=== PATIENT | male | born 1935 | race Caucasian/White ===

== ENCOUNTER 2016-08-24 12:00 | Emergency (ER) | payer MEDICARE, OTHER ==
--- NOTE | 2016-08-24 12:19 | EDM.PDOC ---
ED HISTORY OF PRESENT ILLNESS - General Chief Complaint: Chest Pain Stated Complaint: CHEST PAIN/SOB Time Seen by Provider: 08/24/16 12:18 Source of Information: Reports: Patient History Limitations: Reports: No limitations - History of Present Illness INITIAL COMMENTS - FREE TEXT/NARRATIVE: Patient is a 81-year-old male with no documented medical history who presents to the ED complaining of chest pain and shortness of breath for the past week or so. States the chest discomfort is located to the left lateral aspect of his chest along his nipple line described as a pressure sensation localized rated 5-6 out of 0-10. This decreases with rest. Pain increases with taking deep inspiration and exertion. With chest discomfort he denies any diaphoresis , nausea/vomiting, dizziness, lightheadedness, syncopal episode, cough, fever/ chills, or recent upper history and infection. In addition he has increased shortness of breath with lying flat. This also worsens with exertion. Drastically improved with sitting up or standing. Denies any prior history of chest discomfort as such. He has no history of DVT/PE, hemoptysis, unilateral leg swellin, recent surgery, recent hospitalization, or recent bed confinement. He offers no additional complaints. Timing/Duration: Reports: Constant, Waxing/waning Severity: mild Location, General: Reports: chest Quality: Reports: Pressure Improves with: Reports: Rest Worsens with: Reports: Other (exertion) Context, General: Reports: Activity Associated Symptoms (General): Reports: chest pain, malaise, shortness of breath. 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) (ASA) - Related Data Allergies/ADRs: Allergies Allergy/AdvReac Type Severity Reaction Status Date / Time No Known Allergies Allergy Verified 08/24/16 12:08 Home Meds: Home Meds Ascorbic Acid [Vitamin C] 1,000 mg PO DAILY 08/24/16 [History] Aspirin 325 mg PO DAILY 08/24/16 [History] Past Medical History - Past Surgical History HEENT Surgical History: Reports: Oral surgery Social & Family History - Family History Family Medical History: Noncontributory - Tobacco Use Smoking Status *Q: Former Smoker - Recreational Drug Use Recreational Drug Use: No ED ROS GENERAL - Review of Systems Review Of Systems: See Below Constitutional: Reports: no symptoms Respiratory: Reports: shortness of breath. Denies: cough, sputum Cardiovascular: Reports: Chest pain, Dyspnea on exertion, Orthopnea. Denies: Lightheadedness, Palpitations, PND, Syncope GI/Abdominal: Denies: Abdominal pain, Constipation, Diarrhea, Decreased appetite , Nausea, Vomiting Musculoskeletal: Denies: shoulder pain, arm pain Neurological: Denies: dizziness ED EXAM, GENERAL - Physical Exam Exam: See Below Exam Limited By: No limitations General Appearance: alert, WD/WN, mild distress Ears: hearing grossly normal Nose: normal inspection Throat/Mouth: Normal voice, No airway compromise Neck: normal inspection, supple Respiratory/Chest: no respiratory distress, normal breath sounds, no accessory muscle use, chest non-tender, other (Diminished to the bases) Cardiovascular: normal peripheral pulses, no murmur, tachycardia Peripheral Pulses: 2+: radial (L) GI/Abdominal: normal bowel sounds, soft, non tender, no organomegaly, no distention Back Exam: normal inspection. No: CVA tenderness (L), CVA tenderness (R) Extremities: normal inspection, non-tender, no pedal edema Neurological: alert, oriented, CN II-XII intact, normal cognition, no motor/ sensory deficits Psychiatric: normal affect, normal mood Skin Exam: Warm, Dry, Intact, Normal color Course - Vital Signs Last Recorded V/S: Last Vital Signs Temp 97.0 F 08/24/16 12:04 Pulse 87 08/24/16 15:16 Resp 22 H 08/24/16 15:16 BP 159/83 H 08/24/16 15:16 Pulse Ox 88 L 08/24/16 15:16 - Orders/Labs/Meds Orders: Active Orders 24 hr Category Date Time Status BIPAP Adult [RT BiPAP/CPAP] [RC] ASDIRECTED Care 08/24/16 14:32 Active EKG 12 Lead [EKG Documentation Completion] [RC] STAT Care 08/24/16 12:26 Active EKG Documentation Completion [RC] STAT Care 08/24/16 13:12 Active Oxygen Therapy Adult [Oxygen Therapy] [RC] ASDIRECTED Care 08/24/16 12:38 Active Peripheral IV Care [RC] . DIRECTED Care 08/24/16 12:46 Active Peripheral IV Insertion Adult [OM.PC] Routine Oth 08/24/16 12:46 Ordered Labs: Laboratory Tests 08/24/16 08/24/16 08/24/16 Range/Units 12:10 12:10 12:10 WBC 8.09 (4.23-9.07) K/mm3 RBC 4.65 (4.63-6.08) M/mm3 Hgb 13.9 (13.7-17.5) gm/L Hct 43.4 (40.1-51.0) % MCV 93.3 H (79.0-92.2) fl MCH 29.9 (25.7-32.2) pg MCHC 32.0 L (32.2-35.5) g/dl RDW Std Deviation 50.8 H (35.1-43.9) fL Plt Count 334 (163-337) K/mm3 MPV 9.1 L (9.4-12.3) fl Neut % (Auto) 79.0 H (34.0-67.9) % Lymph % (Auto) 12.4 L (21.8-53.1) % [place] % (Auto) 7.8 (5.3-12.2) % Eos % (Auto) 0.2 L (0.8-7.0) Baso % (Auto) 0.5 (0.1-1.2) % Neut # 6.39 H (1.78-5.38) K/mm3 Lymph # 1.00 L (1.32-3.57) K/mm3 [place] # 0.63 (0.30-0.82) K/mm3 Eos # 0.02 L (0.04-0.54) K/mm3 Baso # 0.04 (0.01-0.08) K/mm3 PT (8.0-13.0) SECONDS INR APTT (22-36) SECONDS D-Dimer, Quantitative 0.79 H (0.19-0.59) mg/L Sodium 140 (136-145) mEq/L Potassium 4.3 (3.5-5.1) mEq/L Chloride 104 (98-107) mEq/L Carbon Dioxide 24 (21-32) mEq/L Anion Gap 16.3 H (5-15) BUN 16 (7-18) mg/dL Creatinine 1.4 H (0.7-1.3) mg/dL Est Cr Clr Drug Dosing 40.00 mL/min Estimated GFR (MDRD) 49 (>60) mL/min BUN/Creatinine Ratio 11.4 L (14-18) Glucose 188 H (83-115) mg/dL Calcium 9.0 (8.5-10.1) mg/dL Total Bilirubin 1.0 (0.2-1.0) mg/dL AST 20 (15-37) U/L ALT 17 (16-63) U/L Alkaline Phosphatase 52 (46-116) U/L Troponin I 3.799 H* (0.00-0.056) ng/mL C-Reactive Protein (<1.0) mg/dL B-Natriuretic Peptide (0-100) pg/mL Total Protein 8.6 H (6.4-8.2) g/dl Albumin 3.8 (3.4-5.0) g/dl Globulin 4.8 gm/dL Albumin/Globulin Ratio 0.8 L (1-2) 08/24/16 08/24/16 08/24/16 Range/Units 12:10 12:10 12:10 WBC (4.23-9.07) K/mm3 RBC (4.63-6.08) M/mm3 Hgb (13.7-17.5) gm/L Hct (40.1-51.0) % MCV (79.0-92.2) fl MCH (25.7-32.2) pg MCHC (32.2-35.5) g/dl RDW Std Deviation (35.1-43.9) fL Plt Count (163-337) K/mm3 MPV (9.4-12.3) fl Neut % (Auto) (34.0-67.9) % Lymph % (Auto) (21.8-53.1) % [place] % (Auto) (5.3-12.2) % Eos % (Auto) (0.8-7.0) Baso % (Auto) (0.1-1.2) % Neut # (1.78-5.38) K/mm3 Lymph # (1.32-3.57) K/mm3 [place] # (0.30-0.82) K/mm3 Eos # (0.04-0.54) K/mm3 Baso # (0.01-0.08) K/mm3 PT 11.3 (8.0-13.0) SECONDS INR 1.03 APTT 25 (22-36) SECONDS D-Dimer, Quantitative (0.19-0.59) mg/L Sodium (136-145) mEq/L Potassium (3.5-5.1) mEq/L Chloride (98-107) mEq/L Carbon Dioxide (21-32) mEq/L Anion Gap (5-15) BUN (7-18) mg/dL Creatinine (0.7-1.3) mg/dL Est Cr Clr Drug Dosing mL/min Estimated GFR (MDRD) (>60) mL/min BUN/Creatinine Ratio (14-18) Glucose (83-115) mg/dL Calcium (8.5-10.1) mg/dL Total Bilirubin (0.2-1.0) mg/dL AST (15-37) U/L ALT (16-63) U/L Alkaline Phosphatase (46-116) U/L Troponin I (0.00-0.056) ng/mL C-Reactive Protein 0.9 (<1.0) mg/dL B-Natriuretic Peptide 1217 H (0-100) pg/mL Total Protein (6.4-8.2) g/dl Albumin (3.4-5.0) g/dl Globulin gm/dL Albumin/Globulin Ratio (1-2) Meds: Medications Discontinued Medications Generic Name Dose Route Start Last Admin Trade Name Freq PRN Reason Stop Dose Admin Furosemide 40 mg 08/24/16 13:10 08/24/16 13:14 Lasix IVPUSH 08/24/16 13:11 40 mg NOW ONE Administration Furosemide 40 mg 08/24/16 14:25 08/24/16 14:33 Lasix IVPUSH 08/24/16 14:26 40 mg NOW ONE Administration Heparin Sodium (Porcine) 4,000 units 08/24/16 13:40 08/24/16 14:12 Heparin Sodium IVPUSH 08/24/16 13:41 Not Given .BOLUS ONE Heparin Sodium (Porcine) Confirm 08/24/16 13:48 08/24/16 13:57 Heparin Sodium Administered 08/24/16 13:49 Not Given Dose 5,000 units .ROUTE .STK-MED ONE Heparin Sodium (Porcine) 4,000 units 08/24/16 13:50 08/24/16 14:18 Heparin Sodium IVPUSH 08/24/16 13:51 Not Given ONETIME ONE Heparin Sodium (Porcine) 4,000 units 08/24/16 14:11 08/24/16 14:18 Heparin Sodium IVPUSH 08/24/16 14:12 4,000 units ONETIME ONE Administration Sodium Chloride 1,000 mls @ 50 mls/hr 08/24/16 13:00 08/24/16 12:57 Normal Saline IV 50 mls/hr ASDIRECTED LEFTY Administration Heparin Sodium/Dextrose 25,000 units in 500 mls @ 18.964 mls/hr 08/24/16 13: 45 08/24/16 13:50 Heparin 25,000 Units In D5w 500 Ml IV 18.964 mls/hr TITRATE LEFTY Administration Protocol 12 UNITS/KG/HR Sodium Chloride 100 mls @ 80 mls/hr 08/24/16 14:00 08/24/16 14:18 Normal Saline IV 80 mls/hr ASDIRECTED LEFTY Administration Heparin Sodium/Dextrose Confirm 08/24/16 13:49 08/24/16 13:53 Heparin 25,000 Units In D5w 500 Ml Administered 08/24/16 13:50 Not Given Dose 25,000 units in 500 mls @ as directed .ROUTE .STK-MED ONE Nitroglycerin/Dextrose 25 mg in 250 mls @ 3 mls/hr 08/24/16 14:30 08/24/16 14 :33 Nitroglycerin 25 Mg/D5w 250 Ml IV 5 mcg/min TITRATE LEFTY 3 mls/hr Protocol Administration 5 MCG/MIN Nitroglycerin/Dextrose Confirm 08/24/16 14:32 08/24/16 14:37 Nitroglycerin 25 Mg/D5w 250 Ml Administered 08/24/16 14:33 Not Given Dose 25 mg in 250 mls @ as directed .ROUTE .STK-MED ONE Iopamidol 100 ml 08/24/16 13:46 08/24/16 14:18 Isovue-370 (76%) IVPUSH 08/24/16 13:47 100 ml ONETIME ONE Administration Nitroglycerin 0.4 mg 08/24/16 14:47 08/24/16 14:25 Nitrostat SL 08/24/16 14:48 0.4 mg ONETIME ONE Administration Sodium Chloride 10 ml 08/24/16 12:46 08/24/16 13:57 Saline Flush FLUSH 10 ml ASDIRECTED PRN Administration Keep Vein Open Sodium Chloride 10 ml 08/24/16 13:46 08/24/16 14:18 Saline Flush FLUSH 10 ml ONETIME PRN Administration IV FLUSH - Re-Assessments/Exams Free Text/Narrative Re-Assessment/Exam: Patient's initial vitals were 158/90, heart rate 115, SpO2 83% on room air, respirations are 23. Patient was placed on O2 via nasal cannula 3 L per minute with gradual increase in the low 90s. Will obtain a peripheral IV with normal saline 50 milliliters per hour, CRP, d-dimer, EKG, chest x-ray one view, chem 14 , CBC, BNP, and troponin. 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 CXR reviewed with Dr. Awad, increased pulmonary vascularization, pleural effusion right and left side. Questionable consolidation to the right lung welsh. 08/24/16 12:45 08/24/16 12:54 Troponin read back at 3.799. Stopped IVF. Appears patient is in heart failure with findings on CXR. Lung sounds reassessed, diminished in the bases with no crackles, rhonchi present. Laboratory results concerning for an NSTEMI with CHF. D-dimer is elevated 0.79 normal per patients age. 08/24/16 13:05 called [facility] one call. They will call back when finished with another transfer. 08/24/16 13:29 Chris entry level receptionist called the ER back. Will speak to Dr. Kumar, entry level receptionist hospitalist for admission. Discussed patient with Dr. Argueta Cardiologists, request heparin bolus 4000 units plus heparin drip 1000 units per hr and CTA of the chest PE protocol. Will call back with results of PE study. Ambulance has been notified. 08/24/16 14:25 CT of the chest completed. Reassessment, patient' complains of increasing shortness of breath. Blood pressure 165/99 SpO2 is 92% on 4 L per minute, heart rate 124 and regular. Ordered additional 40 mg of Lasix IVP and also nitroglycerin sublingual x1. 08/24/16 14:33 Reassessment, patients SOB has not improved with nitro sl x1. Ordered BIPAP and platt catheter to be placed. Reassessment, patients shortness has drastically improved with BIPAP. Vital signs are stable. Patient has had moderate UOP. 08/24/16 15:14 Patient transferred via ambulance to [facility]. I updated one call with patients status. They will update Dr. Kumar. Departure - Departure Time of Disposition: 13:45 Disposition: DC/Tfer to Acute Hospital 02 Reason for Transfer *Q: Other (NSTEMI/CHF) Condition: fair Clinical Impression: NSTEMI (non-ST elevated myocardial infarction), Hypoxia, Shortness of breath Referrals: PCP,None [Primary Care Provider] - - My Orders Last 24 Hours: My Active Orders 08/24/16 12:26 EKG 12 Lead [EKG Documentation Completion] [RC] STAT 08/24/16 12:38 Oxygen Therapy Adult [Oxygen Therapy] [RC] ASDIRECTED 08/24/16 12:46 Peripheral IV Care [RC] . DIRECTED Peripheral IV Insertion Adult [OM.PC] Routine 08/24/16 13:12 EKG Documentation Completion [RC] STAT 08/24/16 14:32 BIPAP Adult [RT BiPAP/CPAP] [RC] ASDIRECTED - Assessment/Plan Last 24 Hours: My Active Orders 08/24/16 12:26 EKG 12 Lead [EKG Documentation Completion] [RC] STAT 08/24/16 12:38 Oxygen Therapy Adult [Oxygen Therapy] [RC] ASDIRECTED 08/24/16 12:46 Peripheral IV Care [RC] . DIRECTED Peripheral IV Insertion Adult [OM.PC] Routine 08/24/16 13:12 EKG Documentation Completion [RC] STAT 08/24/16 14:32 BIPAP Adult [RT BiPAP/CPAP] [RC] ASDIRECTED
[2016-08-24] MEDS: Sodium Chloride 0.9% 10 ML Syringe FLUSH PRN ×4 (12:57→14:18)
[2016-08-24] MEDS ORDERED: Sodium Chloride 0.9% 1,000 ML IV SCH (13:00)
--- NOTE | 2016-08-24 13:01 | CR ---
Chest: Portable view of the chest was obtained. Comparison: No previous chest x-ray. Probable small pleural effusions are present. Pulmonary vessels are congested. Parenchymal densities or pleural plaque noted within the left upper chest. Bony structures are grossly intact. Impression: 1. Findings suspicious for CHF. 2. Parenchymal densities versus pleural plaque within the left upper chest. CT would be needed to differentiate if clinically indicated. Diagnostic code #3
[2016-08-24] MEDS ORDERED: Furosemide 40 MG/4 ML VIAL IVPUSH ONE ×2 (13:10→14:25)
[2016-08-24] MEDS ORDERED: Heparin Sodium 10,000 Units/1 ML MDV IVPUSH ONE (13:40)
[2016-08-24] MEDS ORDERED: Heparin Sodium/D5W 25,000 UNITS/500 ML BAG IV SCH (13:45)
[2016-08-24] MEDS ORDERED: Iopamidol 755 Mg/ML 100 ML Bottle IVPUSH ONE (13:46)
[2016-08-24] MEDS ORDERED: Heparin Sodium 5,000 Units/ML Vial ONE (13:48)
[2016-08-24] MEDS ORDERED: Heparin Sodium/D5W 25,000 UNITS/500 ML BAG ONE (13:49)
[2016-08-24] MEDS ORDERED: Heparin Sodium 5,000 Units/ML Vial IVPUSH ONE ×2 (13:50→14:11)
[2016-08-24] MEDS ORDERED: Sodium Chloride 0.9% 100 ML IV SCH (14:00)
[2016-08-24] MEDS ORDERED: Nitroglycerin/D5W 25 MG/250 ML BOTTLE IV SCH (14:30)
[2016-08-24] MEDS ORDERED: Nitroglycerin/D5W 25 MG/250 ML BOTTLE ONE (14:32)
[2016-08-24] MEDS ORDERED: Nitroglycerin 0.4 MG Tab.SL SL ONE (14:47)
--- NOTE | 2016-08-24 14:59 | CT ---
CT chest Technique: Multiple axial sections were obtained through the chest. Intravenous contrast was utilized. Study performed as a pulmonary angiogram protocol. Findings: Pulmonary arteries are well-opacified. No filling defects are seen to indicate pulmonary embolism. Moderate bilateral pleural effusions are seen. Left lower and right lower lobe atelectasis is noted felt to be on a compressive basis from the pleural effusions. Slight haziness within the perivascular markings are seen most likely due to mild pulmonary vascular congestion. Heart size is slightly enlarged. Visualized upper abdominal structures are within normal limits. There are areas of calcified pleural plaque being seen on both sides. Impression: 1. Findings suspicious for CHF as described above. 2. No findings of pulmonary embolism are seen. 3. Calcified pleural plaque on both sides of the chest which correlates to the densities on chest x-ray. 4. No additional abnormality is noted. Diagnostic code #3
[2016-08-24 15:18] VITALS: BP 159/83
== END 2016-08-24 15:15 ==
LOC: JD.ED 12:00
DX: I21.4 Non-ST elevation (NSTEMI) myocardial infarction (principal); Z79.82 Long term (current) use of aspirin; Z87.891 Personal history of nicotine dependence
CPT/HCPCS: 36415; 51702; 71010; 71275; 80053; 83880; 84484; 85025; 85379; 85610; 85730; 86140; 93005; 94660; 96365; 96375; 99285; J1644; J1940; J7030; J7040; J7050; Q9967; 99284